=== PATIENT | male | born 1940 | race Asian ===

== ENCOUNTER → 2016-08-06 | Outpatient (REF) | payer MEDICARE ==
[2016-08-06 12:15] LABS: ANION GAP 14.8 MEQ/L (3-15)
== END ==
LOC: LAB 10:58
PROVIDERS: ATTEND Family Medicine
DX: E11.9 Type 2 diabetes mellitus without complications (principal); D56.0 Alpha thalassemia; E03.8 Other specified hypothyroidism
CPT/HCPCS: 80048; 80061; 82043; 83036; 84443

== ENCOUNTER → 2016-11-05 | Outpatient (REF) | payer MEDICARE | LOC: LAB 10:12 | PROVIDERS: ATTEND Family Medicine | DX: E11.9 Type 2 diabetes mellitus without complications (principal); Z13.6 Encounter for screening for cardiovascular disorders | CPT/HCPCS: 80061; 83036 ==